=== PATIENT | female | born 1990 | race Two or more races ===

== ENCOUNTER 2018-01-08 12:15 | Inpatient (IN) | payer OTHER ==
[~2018-01-08] VITALS: Ht 162.6 cm; Wt 73.9 kg
[~2018-01-08 12:15] MED LIST: PRENATAL ONE T1 EACH
[2018-01-15] MEDS ORDERED: ACETAMINOPHEN500 M1 PO (08:31)
[2018-01-15] MEDS ORDERED: NABUMETONE750 MG PO (08:31)
== END 2018-01-15 12:43 | disposition home or self-care (01) | DRG 775 ==
LOC: LDR 01-13 01:54 → OB/GYN 01-13 05:22
PROC: 10E0XZZ Delivery of Products of Conception, External Approach (ICD-10-PCS; principal; 2018-01-13)
PROC: 0KQM0ZZ Repair Perineum Muscle, Open Approach (ICD-10-PCS; 2018-01-13)
PROC: 10907ZC Drainage of Amniotic Fluid, Therapeutic from Products of Conception, Via Natural or Artificial Opening (ICD-10-PCS; 2018-01-13)
PROC: 4A1HXCZ Monitoring of Products of Conception, Cardiac Rate, External Approach (ICD-10-PCS; 2018-01-13)
DX: O70.1 Second degree perineal laceration during delivery (principal); Z37.0 Single live birth; Z3A.39 39 weeks gestation of pregnancy

== ENCOUNTER → 2019-12-20 | Outpatient (CLI) | payer OTHER ==
[~2019-12-20] MED LIST changes: +ACETAMINOPHEN500 M1 PO; +NABUMETONE750 MG PO
== END | disposition home or self-care (01) ==
LOC: PRENATAL 10:30
DX: O36.80X9 Pregnancy with inconclusive fetal viability, other fetus (principal); O99.89 Other specified diseases and conditions complicating pregnancy, childbirth and the puerperium

== ENCOUNTER → 2020-02-14 | Outpatient (CLI) | payer OTHER | END | disposition home or self-care (01) | LOC: PRENATAL 11:00 | PROVIDERS: ATTEND Obstetrics & Gynecology | DX: O99.89 Other specified diseases and conditions complicating pregnancy, childbirth and the puerperium (principal); O35.3XX1 Maternal care for (suspected) damage to fetus from viral disease in mother, fetus 1 ==

== ENCOUNTER 2020-06-18 14:45 | Inpatient (IN) | payer OTHER ==
[~2020-06-18] VITALS: Ht 162.6 cm; Wt 71.7 kg
== END 2020-06-27 14:08 | disposition home or self-care (01) | DRG 807 ==
LOC: EDSTATUS 14:45 → LDR 06-25 11:54 → SURG-SUITE 06-25 11:54 → NUR 06-25 19:15 → SURG-SUITE 06-25 19:16 → OB/GYN 06-27 14:45
PROVIDERS: ADMIT Obstetrics & Gynecology; ATTEND Obstetrics & Gynecology
PROC: 10E0XZZ Delivery of Products of Conception, External Approach (ICD-10-PCS; principal; 2020-06-25)
PROC: 4A1HXFZ Monitoring of Products of Conception, Cardiac Rhythm, External Approach (ICD-10-PCS; 2020-06-25)
PROC: 3E033VJ Introduction of Other Hormone into Peripheral Vein, Percutaneous Approach (ICD-10-PCS; 2020-06-25)
DX: O70.1 Second degree perineal laceration during delivery (principal); Z37.0 Single live birth; Z3A.39 39 weeks gestation of pregnancy; Z20.828 Contact with and (suspected) exposure to other viral communicable diseases